=== PATIENT | male | born 1995 | race Caucasian/White ===

== ENCOUNTER 2020-08-22 14:34 | Observation (INO) ==
[2020-08-22] MEDS ORDERED: Ondansetron 4 MG/2 ML VIAL IVP STA (14:53)
[2020-08-22] MEDS ORDERED: Ketorolac 15 MG/ML VIAL IVP ONE (14:53)
[2020-08-22 15:28] LABS: Basophils # 0.1 K/mcL (0.0-0.2); Basophils % 0.6 %; Eosinophils # 0.1 K/mcL (0.0-0.6); Eosinophils % 0.5 %; Hematocrit 51.2 % (37.5-50.1); Hemoglobin 17.7 g/dL (12.9-16.9); Immature Granulocytes % 0.6 % (0-4); Lymphocytes % 18.8 %; Mean Corpuscular HGB Conc 34.6 g/dL (31.6-35.5); Mean Corpuscular Hemoglobin 29.4 pg (28.0-33.3); Mean Corpuscular Volume 84.9 fL (83.0-100.0); Mean Platelet Volume 10.5 fL (9.4-12.4); Monocytes # 0.7 K/mcL (0.0-1.3); Monocytes % 6.8 %; Neutrophils # 7.8 K/mcL (1.6-8.9); Platelet Count 288 K/mcL (140-400); Red Blood Count 6.03 M/mcL (4.19-5.50); Red Cell Distribution Width 12.5 % (11.5-14.5); Segmented Neutrophils % 72.7 %; White Blood Count 10.7 K/mcL (4.3-11.1)
[2020-08-22] MEDS ORDERED: Dicyclomine 20 MG/2 ML AMPUL IM ONE (15:48)
[2020-08-22 15:58] LABS: Alanine Aminotransferase 17 Units/L (7-52); Albumin 5.2 g/dL (3.5-5.7); Albumin/Globulin Ratio 1.7 (1.1-2.2); Alkaline Phosphatase 50 Units/L (34-104); Aspartate Amino Transferase 16 Units/L (13-39); BUN/Creatinine Ratio 15 (6-26); Bilirubin,Direct 0.2 mg/dL (0.0-0.2); Bilirubin,Total 1.2 mg/dL (0.3-1.0); Blood Urea Nitrogen 17 mg/dL (6-20); Calcium 10.5 mg/dL (8.6-10.3); Carbon Dioxide 21 mEq/L (23-29); Chloride 104 mEq/L (98-107); Globulin 3.1 g/dL (2.4-3.5); Glucose 94 mg/dL (70-105); Lipase 27 Units/L (11-82); Osmolality,Calculated 287 (280-300); Potassium 3.9 mEq/L (3.5-5.1); Sodium 138 mEq/L (136-145); Total Protein 8.3 g/dL (6.4-8.9); eGFR For African Americans > 60 (> 60); eGFR For Non-African Americans > 60 (> 60)
[2020-08-22 16:38] LABS: Bacteria,Urine Few per hpf (None-Few); Bilirubin,Urine Negative (Negative); Blood,Urine Negative (Negative); Clarity,Urine Clear (Clear); Color,Urine Yellow (Yellow); Glucose,Urine (UA) Normal (Normal); Ketones,Urine >150 mg/dL (Negative); Leukocyte Esterase,Urine Negative (Negative); Mucus,Urine Many per lpf (None-Few); Nitrite,Urine Negative (Negative); PH,Urine 7.5 pH Units (5.0-8.0); Protein,Urine 100 mg/dL (Neg-Trace); RBC,Urine 0-3 per hpf (0-3); Specific Gravity,Urine > 1.030 (1.010-1.025)
[2020-08-22] MEDS ORDERED: Ondansetron 4 MG/2 ML VIAL IVP PRN (16:47)
[2020-08-22] MEDS ORDERED: Naloxone 0.4 MG/ML INJ IVP PRN (16:47)
[2020-08-22] MEDS ORDERED: Melatonin 3 MG TABLET PO PRN ×2 (16:47→16:49)
[2020-08-22] MEDS ORDERED: Saliva Stimulant 44.3ml BOTTLE PO PRN (16:49)
[2020-08-22] MEDS ORDERED: *HR* LORazepam 0.5 MG TABLET PO PRN (16:51)
[2020-08-22] MEDS: Ringers Solution, Lactated 1,000 ML IVC SCH (18:04)
[2020-08-22] MEDS: *HR* Enoxaparin 40 MG/0.4 ML SYRINGE SQ SCH (19:41)
[2020-08-22] MEDS: Nicotine 2 MG GUM BC PRN (21:09)
[2020-08-23] MEDS: Ringers Solution, Lactated 1,000 ML IVC SCH (05:28)
[2020-08-23 06:52] LABS: Basophils % 0.6 %; Eosinophils # 0.2 K/mcL (0.0-0.6); Eosinophils % 2.9 %; Hematocrit 47.9 % (37.5-50.1); Hemoglobin 16.5 g/dL (12.9-16.9); Immature Granulocytes % 0.3 % (0-4); Lymphocytes # 1.9 K/mcL (0.6-4.6); Lymphocytes % 28.8 %; Mean Corpuscular HGB Conc 34.4 g/dL (31.6-35.5); Mean Corpuscular Hemoglobin 29.9 pg (28.0-33.3); Mean Corpuscular Volume 86.9 fL (83.0-100.0); Mean Platelet Volume 10.6 fL (9.4-12.4); Monocytes # 0.6 K/mcL (0.0-1.3); Monocytes % 8.9 %; Neutrophils # 3.9 K/mcL (1.6-8.9); Platelet Count 237 K/mcL (140-400); Red Blood Count 5.51 M/mcL (4.19-5.50); Red Cell Distribution Width 12.6 % (11.5-14.5); Segmented Neutrophils % 58.5 %; White Blood Count 6.7 K/mcL (4.3-11.1)
[2020-08-23 07:00] LABS: INR 1.2; Prothrombin Time 13.5 Seconds (9.4-12.1)
[2020-08-23 07:12] LABS: BUN/Creatinine Ratio 14 (6-26); Blood Urea Nitrogen 18 mg/dL (6-20); Calcium 9.6 mg/dL (8.6-10.3); Carbon Dioxide 24 mEq/L (23-29); Chloride 105 mEq/L (98-107); Glucose 80 mg/dL (70-105); Magnesium 1.9 mg/dL (1.6-2.6); Osmolality,Calculated 283 (280-300); Phosphorous 4.4 mg/dL (2.7-4.5); Potassium 4.1 mEq/L (3.5-5.1); Sodium 136 mEq/L (136-145); eGFR For African Americans > 60 (> 60); eGFR For Non-African Americans > 60 (> 60)
[2020-08-23] MEDS ORDERED: *HR* FentaNYL (PF) 100 MCG/2 ML VIAL ONE (07:24)
[2020-08-23] MEDS ORDERED: *HR* Midazolam HCl 5 MG/5 ML VIAL IVP ONE ×2 (07:24→07:36)
[2020-08-23] MEDS ORDERED: *HR* FentaNYL (PF) 100 MCG/2 ML VIAL IVP ONE (07:36)
[2020-08-23] MEDS ORDERED: Nicotine 14 MG PATCH.TD24 TD SCH (09:00)
[2020-08-23] MEDS: Multivit/Ca/Min/Fe/FA 1 TAB TABLET PO SCH (09:05)
[2020-08-23] MEDS: Nicotine 21 MG PATCH.TD24 TD SCH (09:05)
[2020-08-23] MEDS: Nicotine 2 MG GUM BC PRN (09:05)
[2020-08-23] MEDS ORDERED: Pantoprazole 40 MG in 0.9 % Sodium Chloride Mini Bag 100 ML IVC SCH (10:45)
[2020-08-23] MEDS: Sennosides/Docusate Sodium TABLET PO SCH (22:13)
[2020-08-23] MEDS: Pantoprazole 40 MG VIAL IVP SCH (22:13)
[2020-08-24 02:24] LABS: Hematocrit 42.8 % (37.5-50.1); Mean Corpuscular HGB Conc 33.6 g/dL (31.6-35.5); Mean Corpuscular Hemoglobin 28.9 pg (28.0-33.3); Mean Corpuscular Volume 85.8 fL (83.0-100.0); Mean Platelet Volume 10.8 fL (9.4-12.4); Platelet Count 229 K/mcL (140-400); Red Blood Count 4.99 M/mcL (4.19-5.50); Red Cell Distribution Width 12.4 % (11.5-14.5); White Blood Count 7.2 K/mcL (4.3-11.1)
[2020-08-24 02:25] LABS: Hemoglobin 14.4 g/dL (12.9-16.9)
[2020-08-24 02:44] LABS: Alanine Aminotransferase 38 Units/L (7-52); Albumin 4.1 g/dL (3.5-5.7); Albumin/Globulin Ratio 1.6 (1.1-2.2); Alkaline Phosphatase 44 Units/L (34-104); Aspartate Amino Transferase 37 Units/L (13-39); BUN/Creatinine Ratio 11 (6-26); Bilirubin,Total 1.1 mg/dL (0.3-1.0); Blood Urea Nitrogen 12 mg/dL (6-20); Calcium 9.1 mg/dL (8.6-10.3); Carbon Dioxide 23 mEq/L (23-29); Chloride 106 mEq/L (98-107); Globulin 2.5 g/dL (2.4-3.5); Glucose 83 mg/dL (70-105); Osmolality,Calculated 285 (280-300); Phosphorous 5.1 mg/dL (2.7-4.5); Potassium 4.2 mEq/L (3.5-5.1); Sodium 138 mEq/L (136-145); Total Protein 6.6 g/dL (6.4-8.9); eGFR For African Americans > 60 (> 60); eGFR For Non-African Americans > 60 (> 60)
[2020-08-24] MEDS: Pantoprazole 40 MG VIAL IVP SCH (06:24)
[2020-08-24] MEDS: *HR* Enoxaparin 40 MG/0.4 ML SYRINGE SQ SCH (06:24)
[2020-08-24] MEDS ORDERED: Ondansetron 4 MG/2 ML VIAL ONE (07:18)
[2020-08-24] MEDS ORDERED: Lidocaine -MPF 4% 5 ML AMPUL ONE (07:18)
[2020-08-24] MEDS ORDERED: *HR* Succinylcholine 200 MG/10 ML VIAL IVP ONE (07:18)
[2020-08-24] MEDS ORDERED: *HR* Rocuronium Bromide 50 MG/5 ML VIAL ONE (07:18)
[2020-08-24] MEDS ORDERED: *HR* Propofol 200 MG/20 ML VIAL IVP ONE (07:18)
[2020-08-24] MEDS ORDERED: *HR* FentaNYL (PF) 100 MCG/2 ML VIAL ONE ×2 (07:18→08:38)
[2020-08-24] MEDS ORDERED: *HR* Midazolam HCl 2 MG/2 ML VIAL ONE (07:18)
[2020-08-24] MEDS ORDERED: Lidocaine -MPF 2% 2 ML VIAL ONE (07:18)
[2020-08-24] MEDS ORDERED: ceFAZolin 2,000 MG in Water for inj. (sterile) 20 ML IVP ONE (08:00)
[2020-08-24] MEDS ORDERED: Sugammadex Sodium 200 MG/2 ML VIAL IV ONE (08:42)
[2020-08-24] MEDS ORDERED: Ketorolac 30 MG/ML VIAL ONE (08:43)
[2020-08-24] MEDS ORDERED: EMTRICITABINE PO SCH (09:00)
[2020-08-24] MEDS ORDERED: TENOFOV ALAFENAM PO SCH (09:00)
[2020-08-24] MEDS ORDERED: Famotidine 20 MG/2 ML VIAL IVP ONE (09:17)
[2020-08-24] MEDS ORDERED: Acetaminophen IV 1,000 MG/100 ML BAG IVPB ONE (09:17)
[2020-08-24] MEDS ORDERED: *HR* OxyCODONE Immed Rel 5 MG TABLET PO PRN (09:17)
[2020-08-24] MEDS ORDERED: *HR* HYDROmorphone 2 MG TABLET PO PRN (09:17)
[2020-08-24] MEDS ORDERED: *HR* Labetalol 20 MG/4 ML SYRINGE IVP PRN (09:17)
[2020-08-24] MEDS ORDERED: *HR* HYDROmorphone (PF) 1 MG/ML SYRINGE ONE (09:22)
[2020-08-24] MEDS: *HR* HYDROmorphone (PF) 1 MG/ML SYRINGE IVP PRN ×4 (09:22→09:52)
[2020-08-24] MEDS ORDERED: Ringers Solution, Lactated 1,000 ML ONE (09:55)
[2020-08-24] MEDS ORDERED: Ondansetron 4 MG/2 ML VIAL IVP PRN (10:15)
[2020-08-24] MEDS ORDERED: *HR* LORazepam 0.5 MG TABLET PO PRN (10:15)
[2020-08-24] MEDS ORDERED: Saliva Stimulant 44.3ml BOTTLE PO PRN (10:15)
[2020-08-24] MEDS ORDERED: Naloxone 0.4 MG/ML INJ IVP PRN (10:15)
[2020-08-24] MEDS ORDERED: Melatonin 3 MG TABLET PO PRN (10:15)
[2020-08-24] MEDS ORDERED: Nicotine 2 MG GUM BC PRN (10:15)
[2020-08-24] MEDS: Multivit/Ca/Min/Fe/FA 1 TAB TABLET PO SCH (10:40)
[2020-08-24] MEDS: Sennosides/Docusate Sodium TABLET PO SCH (10:40)
[2020-08-24] MEDS: Nicotine 21 MG PATCH.TD24 TD SCH (11:46)
[2020-08-24 11:49] LABS: Hematocrit 44.4 % (37.5-50.1); Hemoglobin 15.9 g/dL (12.9-16.9)
[2020-08-24 12:00] VITALS: BP 129/85
[2020-08-24] MEDS ORDERED: Pantoprazole 40 MG VIAL IVP SCH (18:00)
[2020-08-24] MEDS ORDERED: Sennosides/Docusate Sodium TABLET PO SCH (21:00)
[2020-08-25] MEDS ORDERED: Nicotine 21 MG PATCH.TD24 TD SCH (09:00)
[2020-08-25] MEDS ORDERED: Multivit/Ca/Min/Fe/FA 1 TAB TABLET PO SCH (09:00)
[2020-08-25] MEDS ORDERED: EMTRICITABINE PO SCH (09:00)
[2020-08-25] MEDS ORDERED: TENOFOV ALAFENAM PO SCH (09:00)
== END 2020-08-24 14:05 | disposition home or self-care (01) ==
LOC: EMEROOARM 14:34 → 3BNU 14:34 → SUATTDRO 16:41 → 3BNU 17:26
PROVIDERS: ADMIT Internal Medicine; ATTEND Internal Medicine
PROC: ENDOEBX (2020-08-23 07:30)